=== PATIENT | female | born 1985 ===

== ENCOUNTER 2023-10-05 06:34 | Outpatient (RCR) | payer BC, SELFPAY | END 2023-10-05 23:59 | disposition home or self-care (01) | LOC: RPT 06:34 | PROVIDERS: ATTENDING PHYSICIAN Obstetrics & Gynecology Gynecology; PRIMARYCARE PHYSICIAN Internal Medicine | DX: M62.9 Disorder of muscle, unspecified (principal); M62.89 Other specified disorders of muscle (principal); N39.41 Urge incontinence; Z73.6 Limitation of activities due to disability; R27.8 Other lack of coordination; M62.81 Muscle weakness (generalized) | CPT/HCPCS: 97530 ==

== ENCOUNTER 2023-11-09 06:10 | Outpatient (RCR) | payer BC, SELFPAY | END 2023-11-09 08:48 | disposition home or self-care (01) | LOC: RPT 06:10 | PROVIDERS: ATTENDING PHYSICIAN Obstetrics & Gynecology Gynecology; PRIMARYCARE PHYSICIAN Internal Medicine | DX: M62.9 Disorder of muscle, unspecified (principal); N39.41 Urge incontinence; Z73.6 Limitation of activities due to disability; R27.8 Other lack of coordination; M62.81 Muscle weakness (generalized) | CPT/HCPCS: 97530 ==

== ENCOUNTER → 2024-12-30 13:55 | Outpatient (REF) | payer BC, SELFPAY | LOC: HWEVLT 13:55 | PROVIDERS: ATTENDING PHYSICIAN Radiology Vascular & Interventional Radiology | DX: I83.892 Varicose veins of left lower extremity with other complications (principal) | CPT/HCPCS: 93971 ==